=== PATIENT | female | born 1980 | race Caucasian/White ===

== ENCOUNTER 2024-11-16 04:24 | Emergency (ER) | payer MEDICAID, SELFPAY ==
[2024-11-16 04:26] VITALS: BP 124/78; PULSE 100; RESP 23; TEMP 36.7; O2SAT 99; BMI 29.9
--- NOTE | 2024-11-16 04:36 | RAD_ITS ---
INDICATION: chest pain, cough EXAMINATION/TECHNIQUE: X-RAY - XR Chest 2 Views COMPARISON: None. FINDINGS: LINES/DEVICES: None. LUNGS: No consolidation or evidence of an effusion. No evidence of edema or a pneumothorax. MEDIASTINUM AND CARDIOVASCULAR STRUCTURES: Cardiac silhouette is normal in size and contour. Mediastinum is unremarkable. BONES AND SOFT TISSUES: No acute abnormality. RAD/Chest PA and Lateral IMPRESSION: No evidence of cardiopulmonary disease. Electronically Signed: Krystian Izaguirre DO at 6:30 EST ,
--- NOTE | 2024-11-16 04:36 | EKG12_ITS ---
Test Reason : CP Blood Pressure : */* mmHG Vent. Rate : 98 BPM Atrial Rate : 98 BPM P-R Int : 122 ms QRS Dur : 86 ms QT Int : 332 ms P-R-T Axes : 45 66 46 degrees QTcB Int : 423 ms Normal sinus rhythm Normal ECG Confirmed by RUDY PARDO, ISELA ([id number]), desk editor DENICE DAVALOS ([id number]) on 11/20/2024 9:04:55 AM Referred By: TB Confirmed By: ISELA GRANT MD
--- NOTE | 2024-11-16 04:37 | EDS_ITS ---
HPI History of Present Illness Chief Complaint: Chest Pain Narrative Narrative: Patient is a 44-year-old female no past medical history follows with a DrRadha Once a year for yearly checkups who presents to the emergency department with a chief complaint of chest pain. Patient states that today earlier she started developing cough and diffuse bodyaches as well as chest pain. States that the pain does not radiate anywhere and has been constant all day. Patient states that she does smoke marijuana and has alcohol use. Patient denies any sick contacts. Patient denies any recent travel history denies history of blood clots. Per nursing patient was refusing blood work as she just wants a chest for x-ray [facility] Medical History no medical history Home Medications ?Medication ?Instructions ?Recorded ?Last Taken ?Type oseltamivir 75 mg capsule (Tamiflu) 75 mg PO BID 5 days #10 caps 11/16/24 Unknown Rx Allergy/AdvReac Type Severity Reaction Status Date / Time No Known Allergies Allergy Verified 11/16/24 04:25 Social History Smoking Status: Current every day smoker tobacco type: cigarettes ROS ROS ED ROS Narrative Constitutional: Denies any fevers, chills, headaches, lightness, dizziness Eyes: Denies change in vision double vision blurry vision Cardiovascular: Planes of chest discomfort specifically when coughing denies palpitations Respiratory: Complains of cough as noted above Abdomen: Denies abdominal pain nausea vomit diarrhea : Denies any urinary symptoms Neurological: Denies any numbness, weakness, tingling Skin: Denies rashes or lesions EXAM Physical Exam Narrative Exam Narrative: General: Patient lying in bed rest comfortably did not appear to be acute distress Head: Atraumatic, normocephalic Eyes: PERRL bilaterally, EOMI bilaterally, no conjunctival injection noted Neck: Soft, supple, trach midline Cardiovascular: Regular rate and rhythm no murmurs gallops rubs noted Respiratory: Clear to auscultation bilaterally no rales rhonchi or wheezes noted Abdomen: No tenderness palpation, soft, nondistended Extremities: +5/5 strength noted in the bilateral upper and lower extremities, radial pulses +2/4 in the bilateral extremities, no pedal edema on exam Neurological: Patient following commands knew that she was at [facility] is 2024 Skin: Warm, dry, intact no rashes or lesions noted Const Vital Signs: 11/16/24 04:26 11/16/24 04:43 11/16/24 05:25 Temperature 98.1 F Temperature Source Oral Pulse Rate 100 93 Respiratory Rate 23 H 18 Blood Pressure 124/78 H 127/74 H Blood Pressure Mean 93 91 Pulse Ox 99 99 Oxygen Delivery Method Room Air Room Air Room Air 11/16/24 06:00 11/16/24 06:35 Temperature 98 F Temperature Source Pulse Rate 93 86 Respiratory Rate 18 17 Blood Pressure 109/85 H 125/75 H Blood Pressure Mean 93 91 Pulse Ox 98 98 Oxygen Delivery Method Room Air MDM MDM MDM Narrative Medical decision making narrative: Patient is a 44-year-old female who presents to the emergency department the chief complaint of cough and chest discomfort. Once again this pain has been constant throughout the whole day and is worse with coughing. On the differential diagnose includes but not limited to ACS, pneumonia, upper respiratory infection secondary viral etiology, pneumothorax. Once workup is obtained reviewed she will be reevaluated. I did get the patient to agree to obtaining blood work. Nursing staff attempted to obtain blood work 1 time and as soon as they inserted the needle into her arm patient was saying that it hurt too bad and was refusing any further blood work. She states that she will not have any more blood work obtained. Patient's EKG was reviewed and independently interpreted by myself showed sinus rhythm with a rate of 98 bpm. Patient's chest x-ray reviewed by myself and by radiology showed no acute cardiopulmonary processes. Patient did test positive for influenza A. She is given her first dose of Tamiflu here prescription was sent to the pharmacy. She is encouraged to return with worsening symptoms and concerns. Once again she states that it hurts her chest more when she coughs and notes that if she gets up and exerts her health she did not have chest pain. This is likely all secondary to musculoskeletal pain secondary to her coughing significant amount from her influenza. Patient was advised to rotate Tylenol ibuprofen [id number]. She is encouraged return with worsening symptoms or concerns otherwise she is advised to follow-up with her primary care physician after setting. She is agreed this plan all question concerns answered she is discharged home in stable condition. Radiography Diagnostic Testing: Clinical Impression(s) from Imaging Studies Chest X-Ray 11/16/24 04:36 IMPRESSION: No evidence of cardiopulmonary disease. Electronically Signed: Krystian Izaguirre DO at 6:30 EST , Discharge Plan Triage Chief Complaint: Chest Pain ED Provider: Missael Chance Dx/Rx/DC Orders Clinical Impression: Cough, Influenza A Prescriptions: New oseltamivir [Tamiflu] 75 mg capsule 75 mg PO BID 5 Days Qty: 10 0RF Primary Care Provider: SARA CLANCY Referrals: SARA CLANCY DO [Primary Care Provider] - Activity Restrictions/Additional Instructions: You tested positive for influenza A here in the emergency department. Your chest x-ray did not show any evidence of pneumonia. Take the Tamiflu as prescribed this sent to your pharmacy. Rotate Tylenol and ibuprofen [id number]. Follow with your primary care physician outpatient setting. Print Language: Panamanian Disposition Disposition: Home, Self Care
--- NOTE | 2024-11-16 04:50 | ED.RN ---
This RN into room to start an IV and get blood work per Dr. Chance's orders. Prior to attempting, pt was compliant and wanting to get blood work. While attempting to start an IV, after insertion, pt yells take it out, take it out! This RN took out patient's IV. Pt states she no longer wants blood to be drawn or an IV. Dr. Chance made aware.
[2024-11-16 05:25] VITALS: BP 127/74; PULSE 93; RESP 18; O2SAT 99
[2024-11-16 06:00] VITALS: BP 109/85; PULSE 93; RESP 18; O2SAT 98
[2024-11-16 06:35] VITALS: BP 125/75; PULSE 86; RESP 17; TEMP 36.6; O2SAT 98
[2024-11-16] MEDS: Oseltamivir Phosphate 75 MG Capsule PO (06:40)
== END 2024-11-16 06:41 | disposition home or self-care (01) ==
PROVIDERS: Emergency Provider Emergency Medicine; PCP Family Medicine; Visit Provider Emergency Medicine
DX: J10.1 Influenza due to other identified influenza virus with other respiratory manifestations (principal); F17.210 Nicotine dependence, cigarettes, uncomplicated
CPT/HCPCS: 71046; 87631; 93005; 99283